=== PATIENT | female | born 1960 | race Caucasian/White ===

== ENCOUNTER → 2018-06-08 13:24 | Outpatient (CLI) | payer OTHER, SELFPAY ==
--- NOTE | 2018-06-08 | DI.MRI.S_ITS ---
PROCEDURE: MR KNEE LT WO CON INDICATIONS: INTERNAL DERANGEMENT OF LEFT KNEE TECHNIQUE: Noncontrast sagittal PD fast spin echo and T2 fast spin echo with fat saturation, sagittal 3-D FLASH with fat saturation; coronal T1 spin echo and PD fast spin echo with fat saturation, and axial PD fast spin echo with fat saturation through the knee. COMPARISON: None. FINDINGS: Image quality: Excellent. Menisci: The medial and lateral menisci demonstrate normal morphology and internal signal. The meniscal root ligaments appear intact. Cruciate ligaments: The anterior and posterior cruciate ligaments appear intact. Medial structures: The medial collateral ligament appears thickened with intrasubstance signal change. There is adjacent soft tissue edema. No complete rupture is identified. The posterior oblique ligament, semimembranosus tendon insertions, oblique popliteal ligament, and meniscocapsular junction appear intact. Visualized portions of the pes anserinus tendons appear normal. No abnormal bursal fluid. Lateral structures: The lateral collateral ligament, long and short heads of the biceps femoris tendon appear intact. The popliteus tendon appears normal; the popliteofibular ligament appears intact. The posterosuperior and anteroinferior popliteomeniscal fascicles appear intact. The arcuate and fabellofibular ligaments appear intact, on either side of the lateral inferior geniculate artery. Iliotibial band appears normal. Anterior structures: The quadriceps and patellar tendons appear intact. Patellar alignment is normal. No femoral trochlear dysplasia or ventral trochlear prominence. No edema in the infrapatellar fat pad. Bones and cartilage: Marrow contusion involving the posterolateral tibial plateau. No discrete fracture line is identified. Within the medial and lateral compartments articular cartilage appears grossly preserved. There is mild diffuse surface fraying of the patellar articular cartilage. Joint space: There is physiologic knee joint fluid. No Zamarripa's cyst. IMPRESSION: Acute or subacute marrow contusion involving the posterolateral tibial plateau. Low-grade sprain of the medial collateral ligament. Mild patellofemoral chondromalacia. Dictated by: Tray Schwartz M.D. on 06/08/2018 at 14:17 Approved by: Tray Schwartz M.D. on 06/08/2018 at 14:54
== END ==
PROVIDERS: PCP Nurse Practitioner Primary Care; Visit Provider Nurse Practitioner Primary Care
DX: S83.412A Sprain of medial collateral ligament of left knee, initial encounter (principal); S80.02XA Contusion of left knee, initial encounter; M22.42 Chondromalacia patellae, left knee
CPT/HCPCS: 73721

== ENCOUNTER 2025-07-04 10:32 | Emergency (ER) | payer MEDICARE, OTHER, SELFPAY ==
[2025-07-04] VITALS (16 sets, daily range): BP systolic 148–222; BP diastolic 66–100; PULSE 63–89; RESP 18; TEMP 36.2; O2SAT 91–98; BMI 30.7
--- NOTE | 2025-07-04 11:50 | ED.URI ---
HPI - URI/Sore Throat <Ghada Amaya PA-C - Last Filed: 07/04/25 17:52> General Chief Complaint: Upper Respiratory Symptoms Stated Complaint: Bleeding when coughing, Time Seen by Provider: 07/04/25 11:50 Source: patient Mode of arrival: Ambulatory History of Present Illness HPI Narrative: Ms. 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 Patient reports last Monday she started having a sore throat, she then developed a cough and started having blood-tinged sputum from her tracheostomy. She went to [facility] ER on Monday and had a chest x-ray revealing viral reactive airway disease, she was treated with a breathing treatment, doxycycline and Tylenol with codeine and was discharged. She saw her ENT Dr. Santa in [place] 2 days ago who performed and upper airway scope revealing no issues with the trach but did see inflammation in the lungs. Patient has stopped using the codeine as she did not want to mask her cough and she also wanted to be able to drive. She is here today for persistent cough and persistent blood-tinged sputum from her trach. She is experiencing dyspnea on exertion and she has pain in the throat chest and back with coughing, no pain at rest. She is still able to speak swallow and tolerate p.o. without difficulty. Her symptoms are not any worse however they have not improved at all with the doxycycline. She denies fevers, chills, abdominal pain, nausea, vomiting, diarrhea. Reports that her blood pressure has been elevated but she does not take blood pressure medication. She quit smoking 4 years ago. Related Data Previous Rx's ?Medication ?Instructions ?Recorded amoxicillin 875 mg-potassium 1 tab PO Q12H 5 days #10 tabs 07/04/25 clavulanate 125 mg tablet prednisone 20 mg tablet 40 mg (2 x 20 mg) PO DAILY 4 days 07/04/25 #8 tabs Allergies Allergy/AdvReac Type Severity Reaction Status Date / Time From OXYCODONE HCL Allergy Unknown Uncoded 07/04/25 10:38 Review of Systems <Ghada Amaya PA-C - Last Filed: 07/04/25 17:52> Review of Systems ROS Unobtainable: All systems reviewed & are unremarkable except as noted in HPI and below Patient History <Ghada Amaya PA-C - Last Filed: 07/04/25 17:52> Social History Smoking Status: Unknown if ever smoked Smoking Status: Unknown if ever smoked Exam <Ghada Amaya PA-C - Last Filed: 07/04/25 17:52> Narrative Exam Narrative: GENERAL: 65 year old patient appears stated age. Well-developed patient, in no acute distress. HEAD: Atraumatic. Normocephalic. EYES: PERRL. Extraocular motions intact. No scleral icterus. No injection or drainage. ENT: Nose without bleeding, purulent drainage. Posterior oropharynx is patent, uvula is midline. NECK: Trachea midline. Tracheostomy in place. No erythema or irritation around tracheostomy site. CARDIOVASCULAR: Regular rate and rhythm. RESPIRATORY: Nonlabored respirations. Speaking in clear, full sentences when tracheostomy is covered. She has no inspiratory abnormal breath sounds but she does have expiratory rhonchi throughout the lung zapien. GASTROINTESTINAL: Abdomen soft, non-tender, nondistended. EXTREMITIES: No LE edema. NEURO: AOx3. Clear speech. Moves all 4 extremities appropriately. SKIN: No rash or erythema of visible areas Initial Vital Signs Initial Vital Signs: Vital Signs Temperature 97.2 F L 07/04/25 10:39 Pulse Rate 72 07/04/25 10:39 Respiratory Rate 18 07/04/25 10:39 Blood Pressure 222/100 H 07/04/25 10:39 Pulse Oximetry 98 07/04/25 10:39 Oxygen Delivery Method Room Air 07/04/25 10:39 <Nathalia Chang MD - Last Filed: 07/05/25 07:11> Initial Vital Signs Initial Vital Signs: Vital Signs Temperature 97.2 F L 07/04/25 10:39 Pulse Rate 72 07/04/25 10:39 Respiratory Rate 18 07/04/25 10:39 Blood Pressure 222/100 H 07/04/25 10:39 Pulse Oximetry 98 07/04/25 10:39 Oxygen Delivery Method Room Air 07/04/25 10:39 Course <Ghada Amaya PA-C - Last Filed: 07/04/25 17:52> Orders Ordered: Discontinued Medications Albuterol/Ipratropium (Albuterol/Ipratropium 3 Ml Ampul) 3 ml INH NOW ONE Stop: 07/04/25 12:09 Last Admin: 07/04/25 12:41 Dose: 3 ml Documented By: JOSH Methylprednisolone (Methylprednisolone Succ 125 Mg/2 Ml Vial) 125 mg IV NOW ONE Stop: 07/04/25 12:09 Last Admin: 07/04/25 12:37 Dose: 125 mg Documented By: NAILA Vital Signs Vital signs: Vital Signs - 8 hr 07/04/25 10:39 07/04/25 10:46 07/04/25 10:47 Temperature 97.2 F L Pulse Rate 72 Respiratory Rate 18 Blood Pressure 222/100 H 210/91 H Pulse Oximetry 98 91 Oxygen Delivery Method Room Air 07/04/25 10:47 07/04/25 11:00 07/04/25 11:01 Temperature Pulse Rate 83 89 80 Respiratory Rate Blood Pressure Pulse Oximetry 95 98 97 Oxygen Delivery Method 07/04/25 11:01 07/04/25 11:30 07/04/25 11:31 Temperature Pulse Rate 70 Respiratory Rate Blood Pressure 198/79 H 179/76 H Pulse Oximetry 93 Oxygen Delivery Method 07/04/25 11:31 07/04/25 12:00 07/04/25 12:01 Temperature Pulse Rate 63 68 Respiratory Rate Blood Pressure 209/84 H Pulse Oximetry 94 96 Oxygen Delivery Method 07/04/25 12:01 07/04/25 12:20 07/04/25 12:20 Temperature Pulse Rate 68 84 Respiratory Rate Blood Pressure 207/82 H Pulse Oximetry 96 95 Oxygen Delivery Method 07/04/25 12:30 07/04/25 12:30 07/04/25 12:43 Temperature Pulse Rate 63 73 Respiratory Rate 18 Blood Pressure 211/84 H Pulse Oximetry 93 96 Oxygen Delivery Method Room Air 07/04/25 13:00 07/04/25 13:01 07/04/25 13:01 Temperature Pulse Rate 74 68 Respiratory Rate Blood Pressure 206/83 H Pulse Oximetry 93 94 Oxygen Delivery Method 07/04/25 13:07 07/04/25 13:07 07/04/25 13:30 Temperature Pulse Rate 71 Respiratory Rate Blood Pressure 178/72 H 148/66 H Pulse Oximetry 97 Oxygen Delivery Method 07/04/25 13:30 Temperature Pulse Rate 64 Respiratory Rate Blood Pressure Pulse Oximetry 93 Oxygen Delivery Method <Nathalia Chang MD - Last Filed: 07/05/25 07:11> Orders Ordered: Discontinued Medications Albuterol/Ipratropium (Albuterol/Ipratropium 3 Ml Ampul) 3 ml INH NOW ONE Stop: 07/04/25 12:09 Last Admin: 07/04/25 12:41 Dose: 3 ml Documented By: JOSH Methylprednisolone (Methylprednisolone Succ 125 Mg/2 Ml Vial) 125 mg IV NOW ONE Stop: 07/04/25 12:09 Last Admin: 07/04/25 12:37 Dose: 125 mg Documented By: NAILA Vital Signs Vital signs: Vital Signs - 8 hr 07/04/25 10:39 07/04/25 10:46 07/04/25 10:47 Temperature 97.2 F L Pulse Rate 72 Respiratory Rate 18 Blood Pressure 222/100 H 210/91 H Pulse Oximetry 98 91 Oxygen Delivery Method Room Air 07/04/25 10:47 07/04/25 11:00 07/04/25 11:01 Temperature Pulse Rate 83 89 80 Respiratory Rate Blood Pressure Pulse Oximetry 95 98 97 Oxygen Delivery Method 07/04/25 11:01 07/04/25 11:30 07/04/25 11:31 Temperature Pulse Rate 70 Respiratory Rate Blood Pressure 198/79 H 179/76 H Pulse Oximetry 93 Oxygen Delivery Method 07/04/25 11:31 07/04/25 12:00 07/04/25 12:01 Temperature Pulse Rate 63 68 Respiratory Rate Blood Pressure 209/84 H Pulse Oximetry 94 96 Oxygen Delivery Method 07/04/25 12:01 07/04/25 12:20 07/04/25 12:20 Temperature Pulse Rate 68 84 Respiratory Rate Blood Pressure 207/82 H Pulse Oximetry 96 95 Oxygen Delivery Method 07/04/25 12:30 07/04/25 12:30 07/04/25 12:43 Temperature Pulse Rate 63 73 Respiratory Rate 18 Blood Pressure 211/84 H Pulse Oximetry 93 96 Oxygen Delivery Method Room Air 07/04/25 13:00 07/04/25 13:01 07/04/25 13:01 Temperature Pulse Rate 74 68 Respiratory Rate Blood Pressure 206/83 H Pulse Oximetry 93 94 Oxygen Delivery Method 07/04/25 13:07 07/04/25 13:07 07/04/25 13:30 Temperature Pulse Rate 71 Respiratory Rate Blood Pressure 178/72 H 148/66 H Pulse Oximetry 97 Oxygen Delivery Method 07/04/25 13:30 Temperature Pulse Rate 64 Respiratory Rate Blood Pressure Pulse Oximetry 93 Oxygen Delivery Method MDM - URI/Sore Throat <Ghada Amaya PA-C - Last Filed: 07/04/25 17:52> Medical Records Attestation: I reviewed the patient's medical records. Medical records narrative: [facility] her [facility]. Lab Data 07/04/25 12:44 07/04/25 12:44 Labs: Lab Results 07/04/25 Range/Units 12:44 WBC 8.3 (4.5-11.0) X10^3/uL RBC 5.41 H (4.0-5.2) X10^6/uL Hgb 12.8 (12.0-16.0) g/dL Hct 39.6 (36-46) % MCV 73.2 L (80-100) fL MCH 23.7 L (26-34) PG MCHC 32.4 (30-36) % RDW 16.0 H (11.6-14.8) % Plt Count 321 (150-400) X10^3/uL Neut % (Auto) 58.5 (50-75) % Lymph % (Auto) 30.5 (25-40) % [place] % (Auto) 5.8 (3-14) % Eos % (Auto) 4.0 (2-4) % Baso % (Auto) 1.2 (0-2) % Neut # (Auto) 4900 (2918-0941) /uL Lymph # (Auto) 2500 (3468-7093) /uL [place] # (Auto) 500 (0-900) /uL Eos # (Auto) 300 (0-450) /uL Baso # (Auto) 100 (0-100) /uL PT 12.8 H (9.4-12.5) SECONDS INR 1.1 (0.9-1.3) APTT 31 (25.1-36.5) SECONDS Sodium 139 (137-145) mmol/L Potassium 4.0 (3.4-5.1) mmol/L Chloride 107 (98-107) mmol/L Carbon Dioxide 24 (22-32) mmol/L BUN 14 (7-17) mg/dL Creatinine 0.69 (0.52-1.04) mg/dL Estimated GFR > 60 (>60) mL/min BUN/Creatinine Ratio 20.3 (6-22) Glucose 109 H (70-99) mg/dL Calcium 9.0 (8.4-10.2) mg/dL Total Bilirubin 0.4 (0.2-1.3) mg/dL AST 35 (14-36) IU/L ALT 35 H (<35) IU/L Alkaline Phosphatase 145 H (38-126) U/L Total Protein 7.2 (6.3-8.2) g/dL Albumin 4.2 (3.5-5.0) g/dL Globulin 3.0 (1.7-4.1) g/dL Albumin/Globulin Ratio 1.4 (1.0-2.8) Imaging Data Chest x-ray: Radiologist's Impression: PROCEDURE: XR CHEST 2V INDICATIONS: blood tinged sputum from trach; cough TECHNIQUE: 2 views of the chest were acquired. COMPARISON: None. FINDINGS: Surgical changes and devices: Tracheostomy tube overlies the mid intrathoracic trachea. Surgical clips in the inferior neck. Lungs and pleura: Lungs are clear. No pleural effusions or pneumothorax. Mediastinum: Mediastinal contours are normal. Heart size is normal. Bones and chest wall: No suspicious bony abnormalities. Soft tissues appear unremarkable. IMPRESSION: Changes of tracheostomy. No acute pulmonary consolidation or pleural effusion. Dictated by: Juan Prado M.D. on 07/04/2025 at 12:23 Approved by: Juan Prado M.D. on 07/04/2025 at 12:24 [facility] Narrative Medical decision making narrative: 65 year old female With a past medical history of tracheostomy s/p vocal cord paralysis May 2024, COPD, anxiety who presents to the emergency department with persistent blood-tinged sputum from her trach, cough, sore throat x 9 days. Differential diagnosis includes but isn't limited to bronchitis, COPD exacerbation, pneumonia, pharyngitis, etc. On exam the patient is in no acute distress, nontoxic appearing, vital signs appropriate except for elevated blood pressure 198/79. Patient is not hypoxic or tachycardic. She is able to speak in clear full sentences when her tracheostomy is capped. She has no inspiratory wheezing but she does have expiratory rhonchi throughout her lung zapien. She has been on doxycycline without resolution of her symptoms, a chest x-ray on Monday revealed viral reactive airway disease, she had a bronchoscope 2 days ago which revealed inflammation of the lungs. patient reports having negative viral swab previously. Today we will treat with DuoNeb, Solu-Medrol, check CBC CMP coags and two-view chest x-ray. Chest x-ray reveals no acute pulmonary consolidation pleural effusion. Labs reveal normal WBC count 8.3, normal hemoglobin 12.8 hematocrit 39.6. Platelets 321. Normal sodium 139, potassium 4.0, BUN 14 creatinine 0.69. Slight elevation of ALT 35 alkaline phosphatase 145. Patient feels her symptoms are extremely improved after ED treatment of DuoNeb and Solu-Medrol. At this time I do suspect patient's symptoms are related to bronchitis, possible COPD exacerbation, we will add on Augmentin in addition to prednisone. Encourage patient to decrease carbohydrates, sugar in her diet and increase hydration while taking steroids. Discussed strict ED return precautions and prompt follow up with PCP. Patient verbalized understanding of all information and is happy with this plan. She is ambulatory and stable for discharge home. <Nathalia Chang MD - Last Filed: 07/05/25 07:11> Lab Data Labs: Lab Results 07/04/25 Range/Units 12:44 WBC 8.3 (4.5-11.0) X10^3/uL RBC 5.41 H (4.0-5.2) X10^6/uL Hgb 12.8 (12.0-16.0) g/dL Hct 39.6 (36-46) % MCV 73.2 L (80-100) fL MCH 23.7 L (26-34) PG MCHC 32.4 (30-36) % RDW 16.0 H (11.6-14.8) % Plt Count 321 (150-400) X10^3/uL Neut % (Auto) 58.5 (50-75) % Lymph % (Auto) 30.5 (25-40) % [place] % (Auto) 5.8 (3-14) % Eos % (Auto) 4.0 (2-4) % Baso % (Auto) 1.2 (0-2) % Neut # (Auto) 4900 (8301-3939) /uL Lymph # (Auto) 2500 (1919-5885) /uL [place] # (Auto) 500 (0-900) /uL Eos # (Auto) 300 (0-450) /uL Baso # (Auto) 100 (0-100) /uL PT 12.8 H (9.4-12.5) SECONDS INR 1.1 (0.9-1.3) APTT 31 (25.1-36.5) SECONDS Sodium 139 (137-145) mmol/L Potassium 4.0 (3.4-5.1) mmol/L Chloride 107 (98-107) mmol/L Carbon Dioxide 24 (22-32) mmol/L BUN 14 (7-17) mg/dL Creatinine 0.69 (0.52-1.04) mg/dL Estimated GFR > 60 (>60) mL/min BUN/Creatinine Ratio 20.3 (6-22) Glucose 109 H (70-99) mg/dL Calcium 9.0 (8.4-10.2) mg/dL Total Bilirubin 0.4 (0.2-1.3) mg/dL AST 35 (14-36) IU/L ALT 35 H (<35) IU/L Alkaline Phosphatase 145 H (38-126) U/L Total Protein 7.2 (6.3-8.2) g/dL Albumin 4.2 (3.5-5.0) g/dL Globulin 3.0 (1.7-4.1) g/dL Albumin/Globulin Ratio 1.4 (1.0-2.8) Discharge Plan Departure Patient Disposition: Home Clinical Impression: Bronchitis, Asthma exacerbation in COPD Instructions: DI for Acute Bronchitis Activity Restrictions/Additional Instructions: Dear Ms. Donaldson, Thank you for coming to the emergency department. Today you were evaluated for blood coming from your tracheostomy. Your workup today does not reveal pneumonia or any abnormalities with the lungs. I do suspect that you are dealing with bronchitis and possibly an exacerbation of your COPD. I would like you to complete the new course of antibiotics in addition to steroids. As we discussed, it is important to increase hydration and decrease carbohydrates in your diet while taking steroids. Please continue using your prescribed cough medicine and albuterol inhaler as needed. Please follow up with your primary care doctor. Please return to the emergency department if develop any new or worsening symptoms, chest pain, difficulty breathing, worsening bleeding or any other concerns. Please follow up with your primary care doctor within the next 2-3 days for ER follow-up. (If you do not have a PCP you can call [phone]. to schedule an appointment with an [facility] Primary Care Provider) IF YOU DEVELOP ANY NEW OR WORSENING SYMPTOMS, RETURN TO THE ER! Please read the attached instructions, they highlight more specific treatments and interventions for you at home. Thank you for letting me participate in your care, Ghada Amaya PA-C Prescriptions: New amoxicillin-pot clavulanate 875-125 mg tablet 1 tab PO Q12H 5 Days Qty: 10 0RF prednisone 20 mg tablet 40 mg PO DAILY 4 Days Qty: 8 0RF Rx Instructions: Take with breakfast. Referrals: Maxim Glass MD [Primary Care Provider, Family Practice] Stand Alone Forms: Patient Portal/API ED Sign-out <Nathalia Chang MD - Last Filed: 07/05/25 07:11> [facility] Attestation: I was available for consultation during this patient's emergency department visit. This chart is signed by myself for administrative purposes only. I did not have direct contact with this patient during this visit. They were seen independently by the APC.
--- NOTE | 2025-07-04 12:08 | DI.RAD.S_ITS ---
PROCEDURE: XR CHEST 2V INDICATIONS: blood tinged sputum from trach; cough TECHNIQUE: 2 views of the chest were acquired. COMPARISON: None. FINDINGS: Surgical changes and devices: Tracheostomy tube overlies the mid intrathoracic trachea. Surgical clips in the inferior neck. Lungs and pleura: Lungs are clear. No pleural effusions or pneumothorax. Mediastinum: Mediastinal contours are normal. Heart size is normal. Bones and chest wall: No suspicious bony abnormalities. Soft tissues appear unremarkable. IMPRESSION: Changes of tracheostomy. No acute pulmonary consolidation or pleural effusion. Dictated by: Juan Prado M.D. on 07/04/2025 at 12:23 Approved by: Juan Prado M.D. on 07/04/2025 at 12:24
[2025-07-04] MEDS: methylPREDNISolone succ 125 MG/2 ML VIAL IV (12:37)
[2025-07-04] MEDS: ALBUTEROL/IPRATROPIUM 3 ML AMPUL INH (12:41)
[2025-07-04 12:51] LABS: Add Manual Diff / Slide Review NO; Hematocrit 39.6 % (36-46); Hemoglobin 12.8 g/dL (12.0-16.0); Lymphocytes Absolute Auto 2500 /uL (1100-4500); Mean Corpuscular HGB Conc 32.4 % (30-36); Mean Corpuscular Hemoglobin 23.7 PG (26-34); Mean Corpuscular Volume 73.2 fL (80-100); Platelet Count 321 X10^3/uL (150-400)
[2025-07-04 13:01] LABS: INR 1.1 (0.9-1.3); Prothrombin Time 12.8 SECONDS (9.4-12.5)
[2025-07-04 13:03] LABS: PTT Partial Thromboplastin Tim 31 SECONDS (25.1-36.5)
[2025-07-04 13:07] LABS: Alanine Aminotransferase 35 IU/L (<35); Albumin 4.2 g/dL (3.5-5.0); Albumin Globulin Ratio 1.4 (1.0-2.8); Alkaline Phosphatase 145 U/L (38-126); Blood Urea Nitrogen 14 mg/dL (7-17); Calcium 9.0 mg/dL (8.4-10.2); Carbon Dioxide 24 mmol/L (22-32); Chloride 107 mmol/L (98-107); Estimated Glomerular Filt Rate > 60 mL/min (>60); Globulin 3.0 g/dL (1.7-4.1); Glucose 109 mg/dL (70-99); HEMOLYSIS < 15 (0-50); Potassium 4.0 mmol/L (3.4-5.1); Sodium 139 mmol/L (137-145); Total Protein 7.2 g/dL (6.3-8.2)
== END 2025-07-04 13:55 | disposition home or self-care (01) ==
PROVIDERS: Emergency Provider Physician Assistant; PCP Family Medicine
DX: J45.901 Unspecified asthma with (acute) exacerbation (principal); J44.89 Other specified chronic obstructive pulmonary disease; Z87.891 Personal history of nicotine dependence; Z93.0 Tracheostomy status
CPT/HCPCS: 36415; 71046; 80053; 85025; 85610; 85730; 94640; 96374; 99284; J2919

== ENCOUNTER 2025-07-30 12:52 | Emergency (ER) | payer MEDICARE, OTHER, SELFPAY ==
--- OUTSIDE RECORDS SUMMARY | 2025-07-22 16:03 | XMS_ITS | Continuity of Care Document ---
Author Organization [facility] [place] [address] Phone Care Team Providers Care Stave Inspector Name Role Phone Maxim Glass MD Primary Care Provider Serge Lemus MD Emergency Provider Maxim Glass MD Attending Provider Maxim Glass MD Referring Provider Care Teams Patient Care Team Team Status: Active Member Role/Relationship Status Dates Maxim Glass MD Primary Care Provider Active Visit Care Team Team Status: Inactive Member Role/Relationship Status Dates Maxim Glass MD Primary Care Provider Active Start: July 21, 2025 End: July 21, 2025 Serge Lemus MD Emergency Provider Active S tart: July 21, 2025 End: July 21, 2025 Visit Care Team Team Status: Inactive Member Role/Relationship Status Dates Maxim Glass MD Primary Care Provider Active Start: July 21, 2025 End: July 21, 2025 Maxim Glsas MD Attending Provider Active Start: July 21, 2025 End: July 21, 2025 Maxim Glass MD Referring Provider Active Start: July 21, 2025 End: July 21, 2025 Patient Care Team Team Status: Inactive Member Role/Relationship Status Dates Maxim Glass MD Primary Care Provider Active Start: July 22, 2025 End: July 22, 2025 Maxim Glass MD Attending Provider Active Start: July 22, 2025 End: July 22, 2025 Maxim Glass MD Referring Provider Active Start: July 22, 2025 End: July 22, 2025 Chief Complaint and Reason for Visit Chief Complaint Admit Date LT FINGER LAC July 21, 2025 9 :38am Trigger finger of right thumb Tracheosto my in plac July 21, 2025 11:17am 4mo. f/u w/fasting labs July 22 10:16am Allergies, Adverse Reactions, Alerts No known allergies Social History Smoking Status Status Start Date End Date Date of Observa tion Ex-smoker (finding) July 22, 2025 10:34am Observation Status Observation Response Date of Response Suicide Risk Category Screening complete Decembe r 2024 9:45am Living arrangement At home June 6:14pm Living Situation With spouse/s.o. June 28, 2025 6:14pm ETOH Use None June 28, 6:14pm Psychiatric None October 15, 2023 11:29am Legal Sex Female Sex Assigned At Female [id number] Family History Relationship Condition Age at Onset Recorded Date/T yaz father Pulmonary emphysema Unknown Problems Active Problems Problem Diagnosis/Recorded Date Onset Date Stat us Urinary tract infection February 12, 2025 10:09am Unknown Active Achilles tendinitis March 13, 2025 12:41pm Unknown Active Elevated blood pressure reading July 30, 2024 2:47pm Unknown Active Hand sprain June 22, 2025 5:10pm Unknown Ac tive Plantar fasciitis of right foot March 13, 2025 12:41pm Unknown Active Diabetes July 22, 2025 11:32am Unknown A ctive Mild carpal tunnel syndrome of right wrist June 23, 2024 6:17pm May 02, 2018 Active Pain in thumb joint with movement of right hand November 08, 2024 12:53pm Unknown Active Depression June 23, 2024 6:15pm January 01, 2019 Active Hypothyroidism June 23, 2024 6:15pm April 06, 2017 Active Finger laceration July 21, 2025 11:11am Unknown Active Stasis dermatitis of both legs March 25, 2025 3:58pm Unknown Active Sputum production October 31, 2024 5:31pm Unknown Active Trigger finger of right thumb December 26, 2024 8:50am Un known Active BMI 32.0-32.9,adult June 27, 2025 11:13am Unknow n Active Abnormal sputum amount November 22, 2024 8:38am Unknown Active Viral upper respiratory trac t infection November 14th, 2025 11:13am Unknown Active Tracheostomy infection July 30, 2024 3:32pm Unkn own Active Tracheostomy in place October 31, 2024 5:32pm Unknown Active Atelectasis of right lung November 22, 2024 8:38am Unkn own Active Bronchitis July 13, 2024 9:24am Unknown A ctive Bronchitis June 29, 2025 9:34am Unknown A ctive HTN (hypertension) July 12, 2024 12:11pm Unknown Active Right wrist sprain June 22, 2025 5:10pm Unknown Active Inactive/Resolved Problems Problem Diagnosis/Recorded Date Onset Date Stat us Lateral epicondylitis of right elbow July 29, 2015 2:57pm Unknown Resolved Knee effusion, left June 23, 2024 6:15pm May 24, 2018 Resolved Back pain, lumbosacral June 23, 2024 6:17pm Augu st 2016 Resolved Lumbar radiculopathy, acute September 29, 2014 12:14p m Unknown Resolved Preventative health care June 23, 2024 6:15pm Se ptember 2017 Resolved Right upper lobe pulmonary nodule June 23, 2024 6:17pm March 24, 2022 Resolved Nicotine dependence June 23, 2024 6:15pm Septemb er 2020 Resolved Obstructive sleep apnea June 23, 2024 6:15pm Nov ember 2021 Resolved Impingement syndrome of left shoulder June 23, 2024 6:15pm December 26, 2022 Resolved Internal derangement of left knee June 23, 2024 6:15pm May 24, 2018 Resolved Exertional dyspnea June 23, 2024 6:15pm June 15, 2022 Resolved Left medial knee pain May 19, 2018 5:05am Unknown Resolved Osteoarthritis of knees, bilateral June 23, 2024 6:17pm May 02, 2018 Resolved Candidal skin infection June 23, 2024 6:17pm Ambrocio uary 2017 Resolved Vocal cord nodule June 23, 2024 6:15pm February Resolved Acute tracheitis July 13, 2024 10:30am Unknown Resolved Shortness of breath June 23, 2024 6:15pm September 08, 2021 Resolved Sleep disturbance June 23, 2024 6:15pm June 15, 2022 Resolved Hoarseness June 23, 2024 6:15pm January 28 Resolved Osteoporosis June 23, 2024 6:15pm March 05 7 Resolved Degenerative joint disease (DJD) of lumbar spine June 23, 2024 6:17pm March 05, 2017 Resolved Tracheostomy care June 08, 2024 10:55am Unknown Resolved Cervical radiculopathy June 23, 2024 6:15pm Rex h 2023 Resolved History of nasal surgery June 08, 2024 8:56am Unk nown Resolved Contusion of rib on right side June 10, 2017 9:39pm Unknown Resolved Hyperlipidemia June 23, 2024 6:15pm March 05, 017 Resolved Radiculopathy of sacrococcygeal region June 23, 2024 6:17pm August 15, 2017 Resolved Impaired fasting glucose June 23, 2024 6:15pm Ju ly 2016 Resolved Panic disorder June 23, 2024 6:15pm March 02, 022 Resolved Lumbar back pain with radiculopathy affecting left lower extremity June 23, 2024 6:17pm March 01, 2017 Resolved Peter's thyroiditis June 23, 2024 6:15pm Grupo y 2016 Resolved Vocal cord dysfunction June 23, 2024 6:15pm Sept ember 2020 Resolved Vertigo June 23, 2024 6:15pm October 04, 2022 Resolved Tracheostomy complication June 08, 2024 8:56am Un known Resolved Closed fracture of right distal fibula June 07, 2017 1:09pm Unknown Resolved Constriction of airway June 23, 2024 6:17pm Tre fatmata 2021 Resolved Chest wall contusion September 03, 2016 2:50pm Unknown Resolved Prediabetes June 23, 2024 6:15pm March 02 Resolved Hx of cholecystectomy June 29, 2025 9:03am Unkno wn Resolved Hx of hysterectomy June 29, 2025 9:03am Unknown Resolved H/O thyroidectomy June 08, 2024 8:56am Unknown Resolved Shoulder pain, right December 24, 2018 11:39am Unknown Resolved Chronic rhinosinusitis June 23, 2024 6:17pm Augu st 2016 Resolved Chronic diarrhea June 23, 2024 6:17pm August d, 2017 Resolved 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, 2024 6: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 June 15, 2022 Resolved Hemorrhage from tracheostomy stoma July 13, 2024 10:30am Unknown Resolved Inspiratory stridor June 23, 2024 6:15pm September 08, 2021 Resolved Neuropathy, idiopathic June 23, 2024 6:15pm Rex ramsey 2023 Resolved GERD (gastroesophageal reflux disease) June 23, 2024 6:15pm December 26, 2022 Resolved Hx of tracheostomy June 29, 2025 9:03am Unknown Resolved Constipation June 23, 2024 6:15pm April 06, 017 Resolved Contusion of hand, left January 22, 2018 11:59am Unknow n Resolved Corneal abrasion, right November 04, 2018 12:54pm Unkno wn Resolved Wrist strain October 15, 2023 11:20am Unknown Reso lved Medications Medication Status Dose Units Route Directions Qty Days Refills S tart Date Stop Date End Date Reason(s) Instructions Adherence Levothyroxi ne 125 mcg tablet Discont inued 0 .ROUTE .COMPLEX 90 3 Decemb er 2023 4:45pm Decem hannah 2024 11:29 am TAKE ONE TABLET BY MOUTH ONE TIME DAILY Metformin (Glucophage Xr) 500 mg tablet extended release 24 hr Discont inued 500 MG PO TWICE A DAY 60 2 November 16, 2024 11:00p m Augus t 2024 7:33a m Lorazepam 0.5 mg tablet Active 0.5 MG PO FOUR TIMES DAILY as needed for anxiety 60 15 3 February 06, 2025 9:29am Complies with drug therapy Citalopram 10 mg tablet Active 0 .ROUTE .COMPLEX 30 6 April 08, 2025 7:32am TAKE ONE TABLET BY MOUTH ONE TIME DAILY Complies with drug therapy Metformin 500 mg tablet extended release 24 hr Active 0 .ROUTE .COMPLEX 60 6 April 08, 2025 7:32am TAKE ONE TABLET BY MOUTH TWICE DAILY Complies with drug therapy Meclizine 25 mg tablet Discont inued 25 MG PO TWICE A DAY as needed for dizziness 60 1 Octobe r 2024 11:00p m Decem hannah 2024 9:50a m Levothyroxi ne (Synthroid) 125 MCG tablet Discont inued 112 MCG PO DAILY March 31, 2013 11:00p m Novem hannah 2023 11:11 am Hydrocodone -Acetaminop hen 1 EACH tablet Discont inued 1 - 2 EACH PO Q6H as needed for Pain 15 0 March 31, 2013 11:00p m [facility] hannah 2012 7:33p m Levothyroxi ne (Synthroid) 125 mcg tablet Discont inued 125 MCG PO DAILY [facility] er 2023 11:09a m [facility] hannah 2023 4:46p m Hydrocodone -Acetaminop hen 1 EACH tablet Discont inued 1 - 2 EACH PO Q6H as needed for Pain 15 0 [facility] er 2012 12:00a m [facility] fatmata2014 11:10 am Prednisone 20 MG tablet Discont inued 40 MG PO DAILY 5 0 Dece er 2012 12:00a m [facility]2014 11:10 am 2X 20 MG TABS. QS Benzonatate 100 MG capsule Discont inued 100 MG PO THREE TIMES A DAY 15 0 Dece er 2012 12:00a m [facility] 2014 11:10 am Diazepam 5 MG tablet Discont inued 5 - 10 MG PO THREE TIMES A DAY as needed for Spasms 15 0 [facility] er 2012 12:00a m [facility] 2014 11:10 am 1-2 TABLETS Hydrocodone -Acetaminop hen 1 EACH tablet Discont inued 1 EACH PO Q4H as needed for Pain 20 0 Februa ry 2014 12:13p m [facility] hannah 2014 2:15p m Cyclobenzap rine 10 MG tablet Discont inued 10 MG PO THREE TIMES A DAY as needed for Spasms 20 0 Februa ry 2014 12:00a m [facility] h[place] 2014 2:15p m Ibuprofen 800 MG tablet Discont inued 800 MG PO Q8H as needed for PAIN &/OR FEVER 30 0 Februa ry 2014 12:00a m [facility] hannah 2014 2:15p m Prednisone 20 MG tablet Discont inued 60 MG PO DAILY 5 0 Februa ry 2014 12:00a m [facility] hannah 2014 2:15p m 3 X 20 MG TABS. QS Hydrocodone -Acetaminop hen 1 TAB tablet Discont inued 1 - 2 EACH PO Q6H as needed for Pain 15 0 Octobe r 2016 11:00p m January 22, 2018 11:12 am Knee Scooter Discont inued 1 UNIT .Route ONCE 1 Octobe r 2016 11:00p m January 22, 2018 11:12 am Knee scooter, #1, use as directed. . LOS 10 weeks. Diagnosis S82. 832A Erythromyci n 1 GM ointment Discont inued 1 APPFUL OP 5 TIMES DAILY 1 7 0 November 03, 2018 11:00p m October 15, 2023 10:10 am Meloxicam 7.5 MG tablet Discont inued 7.5 MG PO TWICE A DAY as needed for Pain 20 0 December 23, 2018 11:00p m February 17, 2023 11:46 am Doxycycline Hyclate 100 mg capsule Discont inued 100 MG PO TWICE A DAY 14 0 Novemb er 2023 12:00a m Novem hannah 2024 10:33 am Bronchitis Bronchitis , not specified as acute or chronic Hydrocodone -Acetaminop hen 5-325 mg tablet Discont inued 1 TAB PO THREE TIMES A DAY as needed for pain 14 0 Novemb er 2024 Novem hannah 2024 8:42a m Sprain of right wrist Unspecifie d sprain of right wrist, initial encounter Meloxicam 7.5 mg tablet Discont inued 7.5 MG PO TWICE A DAY 30 1 Novemb er 2024 12:00a m Novem hannah 2024 8:43a m Sprain of right wrist Unspecifie d sprain of right wrist, initial encounter Doxycycline Hyclate 100 mg capsule Discont inued 100 MG PO TWICE A DAY 14 0 Novemb er 2024 12:00a m Decem hannah 2024 9:48a m Bronchitis Bronchitis , not specified as acute or chronic Codeine-Gua ifenesin (Guaifenesi n Ac) 10-100 mg/5 mL liquid Discont inued 5 - 10 ML PO Q4H as needed for cough 120 0 Novemb er 2024 12:00a m Decem hannah 2024 10:04 am Bronchitis Bronchitis , not specified as acute or chronic Albuterol Sulfate (Ventolin Hfa) 90 mcg/actuati on HFA aerosol inhaler Active 1 PUFFS INH FOUR TIMES DAILY as needed for shortness of breath or wheezing 6.7 0 Novemb er 2024 12:00a m Bronchitis Bronchitis , not specified as acute or chronic Complies with drug therapy Inhalat. Spacing Dev,Sm. Mask (Space Chamber With Small Mask) spacer Active 0 .Route 1 0 Novemb er 2024 12:00a m Bronchitis Bronchitis , not specified as acute or chronic As directed Lorazepam 0.5 mg tablet Discont inued 0.5 MG PO FOUR TIMES DAILY as needed for anxiety 60 15 3 Novemb er 2023 12:00a m February 06, 2025 9:30a m Ketoconazol e 2 % cream Discont inued 1 APPLIC TOP every day 60 3 Novemb er 2023 12:22p m Decem hannah 2024 9:49a m Apply 1 a small amount to skin once a day Levothyroxi ne 112 mcg tablet Active 112 MCG PO every day 90 3 Dece er 2024 11:29a m Hypothyroi dism Hypothyroi dism, unspecifie d Complies with drug therapy Nitrofurant oin Monohyd/M-C ryst (Macrobid) 100 mg capsule Discont inued 100 MG PO Q12H 10 5 0 February 11, 2025 11:00p m February 15, 2025 11:00 pm February 16, 2025 11:00 pm Urinary tract infection Urinary tract infection, site not specified must administer with a meal/food Naproxen 500 mg tablet Discont inued 500 MG PO TWICE A DAY as needed for pain 60 2 March 12, 2025 11:00p m Dece hannah 2024 10:05 am On Hold: Per Patient Omeprazole 40 mg capsule,del ayed release(DR/ EC) Discont inued 40 MG PO every day as needed Novemb er 2023 12:00a m Novem hannah 2023 11:10 am Take 1 capsule by mouth once a day before breakfast Gabapentin 100 mg capsule Discont inued 100 MG PO FOUR TIMES DAILY Novemb er 2023 12:00a m Novem hannah 2023 11:10 am Take 1 capsule by mouth four times a day Temporary Disabled Placard misc Discont inued 0 .Route Novemb er 2023 12:00a m Dece hannah 2023 9:45a m As directed Ibuprofen (Motrin Ib) 200 mg tablet Active 400 MG PO Q8H as needed for fever or pain [facility] er 2023 12:00a m Take 2 tablet by mouth once a day Complies with drug therapy Acetaminoph en (Tylenol) 325 mg tablet Active 325 MG PO Q6H as needed for fever or pain [facility] er 2023 12:00a m Complies with drug therapy Ketoconazol e 2 % cream [facility]cont [facility] Novem hannah 2023 12:22 pm Apply 1 a small amount to skin once a day Citalopram 10 mg tablet Discont inued 10 MG PO every day 30 5 October 28, 2024 11:00p m Augus t 2024 7:33a m Temporary Disabled Placard misc Discont inued 0 .Route 1 0 [facility] 2023 12:00a m Dece hannah 2023 9:56a m As directed for twelve months. Temporary Disabled Placard misc Discont inued 0 .Route 1 0 [facility] 2023 9:56am Dece hannah 2023 9:44a m As directed for twelve months. Temporary Disabled Placard misc Discont inued 0 .Route 1 0 [facility] 2023 9:44am [facility] hannah 2023 9:45a m As directed for twelve months. Temporary Disabled Placard misc Discont inued 0 .Route 1 0 [facility] 2023 9:44am October 29, 2024 11:02 am As directed Temporary Disabled Placard misc Active 0 .Route 1 0 [facility] 2023 9:45am As directed for twelve months. Dextrometho ruddy-Gisellef enesin 60-1,200 mg tablet extended release 12 hr Discont inued 1 TAB PO Q12H 14 7 0 Novem er 2024 12:00a m Novem 2024 12:00 am Novem hannah 2024 12:01 am cough Immunizations Immunization Event Date Not Given Reason Dose Number [employer] Lot Number Reason(s) Given Vaccine Information Statement (VIS) Detail Administration Location Covid-19 Seasonal 12+ Octobe r 2023 [id number] October 23, 2020 [id number] [facility] 2020 Flu Vaccine [id number] Octobe r 2023 [id number] Influenza, Quadrivalent, Recombinant, PF Octobe r 2019 [id number] Relevant Diagnostic Tests and/or Laboratory Data Laboratory Results Test Collection Date/Time Result Date/Time Result Interpretation Reference Range Result Comment Performing Site White Blood Count July 21, 2025 11:24am July 21, 2025 11:29am 9.8 10*3/uL 4.8-10.8 [facility] [id number] [address] [facility] [address] Red Blood Count July 21, 2025 11:24am July 21, 2025 11:29am 5.71 10*6/uL above high threshold 4.20-5.40 [facility] [id number] [address] [facility] [address] Hemoglobi n July 21, 2025 11:24am July 21, 2025 11:29am 13.4 g/dL 12.0-16.0 [facility] [id number] [address] [facility] [address] Hematocri t July 21, 2025 11:24am July 21, 2025 11:29am 44.9 % 37.0-47.0 [facility] [id number] [address] [facility] [address] Mean Corpuscul ar Volume July 21, 2025 11:24am July 21, 2025 11:29am 78.6 fL below low threshold 81.0-99.0 [facility] [id number] [address] [facility] [address] Mean Corpuscul ar Hemoglobi n July 21, 2025 11:24am July 21, 2025 11:29am 23.5 pg below low threshold 27.0-31.0 [facility] [id number] [address] [facility] [address] Mean Corpuscul ar Hemoglobi n Concent July 21, 2025 11:24am July 21, 2025 11:29am 29.8 g/dL below low threshold 32.0-36.0 [facility] [id number] [address] [facility] [address] Red Cell Distribut ion Width July 21, 2025 11:24am July 21, 2025 11:29am 16.0 % above high threshold 12.0-15.0 [facility] [id number] [address] [facility] [address] Platelet Count July 21, 2025 11:24am July 21, 2025 11:29am 327 10*3/uL 130-450 [facility] [id number] [address] [facility] [address] Mean Platelet Volume July 21, 2025 11:24am July 21, 2025 11:29am 10.4 fL 7.9-10.8 [facility] [id number] [address] [facility] [address] Neutrophi ls # (Auto) July 21, 2025 11:24am July 21, 2025 11:29am 6.6 10*3/uL 1.5-6.6 [facility] [id number] [address] [facility] [address] Lymphocyt es # (Auto) July 21, 2025 11:24am July 21, 2025 11:29am 2.2 10*3/uL 1.5-3.5 [facility] [id number] [address] [facility] [address] Monocytes # (Auto) July 21, 2025 11:24am July 21, 2025 11:29am 0.6 10*3/uL 0.0-1.0 [facility] [id number] [address] [facility] [address] Eosinophi ls # (Auto) July 21, 2025 11:24am July 21, 2025 11:29am 0.4 10*3/uL 0.0-0.7 [facility] [id number] [address] [facility] [address] Basophils # (Auto) July 21, 2025 11:24am July 21, 2025 11:29am 0.1 10*3/uL 0.0-0.1 [facility] [id number] [address] [facility] [address] Nucleated Red Blood Cells % July 21, 2025 11:24am July 21, 2025 11:29am 0.0 /100{WB C} [facility] [id number] [address] [facility] [address] Nucleated RBC Absolute Count (auto) July 21, 2025 11:24am July 21, 2025 11:29am 0.00 10*3/uL [facility] [id number] [address] [facility] [address] Sodium Level July 21, 2025 11:24am July 21, 2025 11:45am 138 mmol/L 135-145 [facility] [id number] [address] [facility] [address] Potassium Level July 21, 2025 11:24am July 21, 2025 11:45am 4.3 mmol/L 3.5-4.5 As of February 2023 testing method has changed, this may include reference ranges. [facility] [id number] [address] [facility] [address] Chloride Level July 21, 2025 11:24am July 21, 2025 11:45am 104 mmol/L 101-111 As of February 2023 testing method has changed, this may include reference ranges. [facility] [id number] [address] [facility] [address] Carbon Dioxide Level July 21, 2025 11:24am July 21, 2025 11:45am 28 mmol/L 21-32 As of February 2023 testing method has changed, this may include reference ranges. [facility] [id number] [address] [facility] [address] Anion Gap July 21, 2025 11:24am July 21, 2025 11:45am 6.0 6-13 [facility] [id number] [address] [facility] [address] Blood Urea Nitrogen July 21, 2025 11:24am July 21, 2025 11:45am 12 mg/dL 6-20 As of February 2023 testing method has changed, this may include reference ranges. [facility] [id number] [address] [facility] [address] Creatinin e July 21, 2025 11:24am July 21, 2025 11:45am 0.6 mg/dL 0.6-1.3 As of February 2023 testing method has changed, this may include reference ranges. [facility] [id number] [address] [facility] [address] Estimated GFR (MDRD) July 21, 2025 11:24am July 21, 2025 11:45am 100 >89 The IDMS-traceab le MDRD Study Equation has been validated extensively in and populations between the ages of 18 and 70 with impaired kidney function (eGFR < 60 mL/min/1.73m 2) and has shown good performance for patients with all common causes of kidney disease. Although this equation has not been validated for patients older than 70, an MDRD-derived eGFR may still be a useful tool for providers caring for patients older than 70.Reference s: http://www.n kdep.nih.gov /lab-evaluat ion/gfr/crea tinine-stand ardization, last updated October 2011. [facility] [id number] [address] [facility] [address] Glucose Level July 21, 2025 11:24am July 21, 2025 11:45am 129 mg/dL above high threshold 74-104 As of February 2023 testing method has changed, this may include reference ranges. [facility] [id number] [address] [facility] [address] Uric Acid July 21, 2025 11:24am July 21, 2025 11:45am 5.2 mg/dL 2.3-6.6 As of February 2023 testing method has changed, this may include reference ranges. [facility] [id number] [address] [facility] [address] Calcium Level July 21, 2025 11:24am July 21, 2025 11:45am 9.3 mg/dL 8.5-10.3 As of February 2023 testing method has changed, this may include reference ranges. [facility] [id number] [address] [facility] [address] Magnesium Level July 21, 2025 11:24am July 21, 2025 11:45am 2.0 mg/dL 1.7-2.3 As of February 2023 testing method has changed, this may include reference ranges. [facility] [id number] [address] [facility] [address] Total Bilirubin July 21, 2025 11:24am July 21, 2025 11:45am 0.4 mg/dL 0.2-1.0 As of February 2023 testing method has changed, this may include reference ranges. [facility] [id number] [address] [facility] [address] Aspartate Amino Transf (AST/SGOT ) July 21, 2025 11:24am July 21, 2025 11:45am 19 [iU]/L 10-42 As of February 2023 testing method has changed, this may include reference ranges. [facility] [id number] [address] [facility] [address] Alanine Aminotran sferase (ALT/SGPT ) July 21, 2025 11:24am July 21, 2025 11:45am 24 [iU]/L 10-60 As of February 2023 testing method has changed, this may include reference ranges. MA[facility] [id number] [address] [facility] [address] Alkaline Phosphata se July 21, 2025 11:24am July 21, 2025 11:45am 146 [iU]/L above high threshold 42-121 As of February 2023 testing method has changed, this may include reference ranges. [facility] [id number] [address] [facility] [address] Total Protein July 21, 2025 11:24am July 21, 2025 11:45am 7.4 g/dL 6.4-8.9 As of February 2023 testing method has changed, this may include reference ranges. [facility] [id number] [address] [facility] [address] Albumin July 21, 2025 11:24am July 21, 2025 11:45am 4.4 g/dL 3.2-5.5 As of February 2023 testing method has changed, this may include reference ranges. [facility] [id number] [address] [facility] [address] Globulin July 21, 2025 11:24am July 21, 2025 11:45am 3.0 g/dL 2.1-4.2 [facility] [id number] [address] [facility] [address] Albumin/G lobulin Ratio July 21, 2025 11:24am July 21, 2025 11:45am 1.5 1.0-2.2 [facility] [id number] [address] [facility] [address] Triglycer ides Level July 21, 2025 11:24am July 21, 2025 11:45am 155 mg/dL As of February 2023 testing method has changed, this may include reference ranges.Trigl yceride Risk Classificati on<150 mg/dL [id number] 9 mg/dL Borderline [id number] mg/dL High>500 mg/dL Very High [facility] [id number] [address] [facility] [address] Cholester ol Level July 21, 2025 11:24am July 21, 2025 11:45am 216 mg/dL above high threshold <200 As of February 2023 testing method has changed, this may include reference ranges.Total Cholesterol Risk Classificati onCholestero l Level Risk Classificati on ======= ======= <200 mg/dL Desirable 200-239 mg/dL Borderline High >240 mg/dL High [facility] [id number] [address] [facility] [address] LDL Cholester ol, Calculate d July 21, 2025 11:24am July 21, 2025 11:45am 127 mg/dL <129 LDLD REFERENCE RANGE AND CARDIOVASCUL AR RISK:<130 mg/dL [id number] -159 mg/dL Borderline High Risk>160 mg/dL High Risk MAIN [facility] [id number] [address] [facility] [address] VLDL Cholester ol July 21, 2025 11:24am July 21, 2025 11:45am 31 mg/dL MAIN [facility] [id number] [address] [facility] [address] HDL Cholester ol July 21, 2025 11:24am July 21, 2025 11:45am 58 mg/dL below low threshold >60 As of February 2023 testing method has changed, this may include reference ranges.Coron fatmata Heart Disease Risk Classificati onHDL Level Risk factor====== ===== =< 40 mg/dL major risk > 60 mg/dL negative risk MAIN [facility] [id number] [address] [facility] [address] Cholester ol Ratio (LDL/HDL) July 21, 2025 11:24am July 21, 2025 11:45am 2.2 <4.4 MAIN [facility] [id number] [address] [facility] [address] Cholester ol/HDL Ratio July 21, 2025 11:24am July 21, 2025 11:45am 3.7 <4.4 NATIONAL CHOLESTEROL GUIDELINE [facility] ([facility]) guidelines for classificato n, testing and management of cholesterol levels in adults over 20 years of age. This new classificati on creates three categories of risk for coronary heart disease, regardless of age or sex, according to total amd LDL cholesterols levels: Based on total cholesterol levelDesirab le <200 mg/dlBorderl ine-high 200-239 mg/dlHigh >=240 mg/dl Based on cholesterol ratioCHD RISK CHOL/HDL RATIO------- ----- MALE FEMALE0.5 x Average 3.4 3.31.0 x Average 5.0 4.42.0 x Average 9.6 7.13.0 x Average 13.5 11.0 MAIN [facility] [id number] [address] [facility] [address] Thyroid Stimulati ng Hormone (TSH) July 21, 2025 11:24am July 21, 2025 11:57am 0.08 u[iU]/m L below low threshold 0.34-5.60 MAIN LAB [id number] [address] [facility] [address] Hemoglobi n A1c Percent July 21, 2025 11:24am July 21, 2025 12:44pm 6.4 % above high threshold 4.27-6.07 The [place] [employer] (ADA) has made the following recommendati ons:Monitori ng HbA1c in Diabetic Patients:A1c (NGSP%) Goal <8 Less Stringent Goal <7 General Goal <6.5 More Stringent GoalDiagnosi s of Diabetes:A1c (NGSP%) Goal >6.5 Diabetic 5.7-6.4 Pre-Diabetic <5.7 Non-Diabetic MAIN LAB [id number] [address] [facility] [address] Estimated Average Glucose July 21, 2025 11:24am July 21, 2025 12:44pm 137 mg/dL above high threshold 70-100 MAIN LAB [id number] [address] [facility] [address] Vital Signs Vital Reading Result Reference Range Collection Date/Time Height 65 [in_i] July 21 9:45am Weight 86.18 kg July 21 9:45am Body Temperature 36 Kimberly 36.5-37.9 July 9:45am Heart Rate 73 /min 60-100 July 21 9:45am Respiratory rate 16 /min 12-July 9:45am Oxygen saturation by Pulse oximetry 98 % 92-100 July 21, 2025 9 :45am BP Systolic 183 mm[Hg] 90-130 July 21, 2 025 9:45am BP Diastolic 77 mm[Hg] 60-90 July 21, 2 025 9:45am BMI (Body Mass Index) 31.6 kg/m2 [facility] er 2024 9:45am Height 65 [in_i] July 22, 2 025 10:25am Weight 87.65 kg July 22, 2 025 10:25am Body Temperature 36.5 Kimberly 36.5-37.9 July h2024 10:25am Heart Rate 68 /min 60-100 July 22, 025 10:25am Respiratory rate 12 /min 12-24 July 10:25am Oxygen saturation by Pulse oximetry 95 % 92-100 July 22, 2025 1 0:25am BP Systolic 181 mm[Hg] 90-130 July 22, 2 025 10:25am BP Diastolic 90 mm[Hg] 60-90 July 22, 2 025 10:25am BMI (Body Mass Index) 32.2 kg/m2 [facility] 2024 10:25am Advance Directives Advance Directive Response Recorded Date/ Time Advance Directives No June 8:30am Advance Directives Information Provided No June 27, 2022 8:30am Insurance Providers Guarantor MYRON QUEZADA Address [address] [facility] [address] [place] [phone] Contact Info. Home Phone: Coverage Status Update:2025 Payer Group Member ID Coverage Type Subscriber Relationship to Subscriber Effective Date Expiration Date Malia Prime [id number] mary alice QUEZADA Id: [id number] [employer] Id: [id number] null MYRON QUEZADA Id: [id number] [address] [facility] [address] [facility] [address] Home Phone: Email: [email or web address] Self Encounters Encounter Location(s) Arrival/Admit Date Discharge/Departure Date Discharge/Departure Disposition Provider(s) Departed Emergency -Emergency Department July 21, 2025 9:38am July 21, 2025 11:18am Discharged to home care or self care (routine discharge) Departed Clinical -Lab (Main) July 21, 2025 11:17am July 21, 2025 11:59pm Discharged to home care or self care (routine discharge) Maxim Glass MD Departed Physician/ Provider Office Visit -[facility] [place] July 22, 2025 10:16am July 22, 2025 11:59pm Discharged to home care or self care (routine discharge) Maxim Glass MD Plan of Treatment Future Tests Future scheduled test information is unavailable Pending Tests Test Name Ordered Date Scheduled Date CBC - COMP BLD CT W/AUTO DIFF July 22, 2025 11:29am COMPREHENSIVE METABOLIC PANEL July 22, 2025 11:29am THYROID STIMULATING HORMONE July 22, 2025 1 1:29am Future Visits Future appointment information is unavailable Future Procedures Procedure Name Ordered Date Scheduled Date HEMOGLOBIN A1c% July 22, 2025 11:30am Future Medications Future medication information is unavailable Patient Instructions Instruction Admit Date ED Laceration, All Closures ED Hand Laceration- All Closures July 21, 2025 9:38am
[2025-07-30 13:01] VITALS: BP 167/78; PULSE 66; RESP 18; TEMP 36.4; O2SAT 97; BMI 31.6
--- NOTE | 2025-07-30 13:06 | ED.RECABL ---
HPI - Recheck/Abnormal Lab/Rx <Ghada Amaya PA-C - Last Filed: 07/30/25 13:21> General Chief Complaint: Recheck/Abnormal Lab/Rx Stated Complaint: Remove stitches L hand, pointer finger Time Seen by Provider: 07/30/25 13:06 Source: patient Mode of arrival: Family Vehicle History of Present Illness HPI narrative: Ms. Donaldson is a very pleasant 65-year-old female who presents to the emergency department for suture removal of left index finger. She cut her left index finger with a knife 10 days ago and had 4 sutures placed at an outside ER. She was advised to have them removed now. She is not dealing with any redness, drainage, fevers or swelling. Finger has healed well. No other concerns. Related Data Allergies Allergy/AdvReac Type Severity Reaction Status Date / Time From OXYCODONE HCL Allergy Unknown Uncoded 07/30/25 13:00 Review of Systems <Ghada Amaya PA-C - Last Filed: 07/30/25 13:21> Review of Systems ROS Unobtainable: All systems reviewed & are unremarkable except as noted in HPI and below Patient History <Ghada Amaya PA-C - Last Filed: 07/30/25 13:21> Social History Smoking Status: Former smoker Smoking Status: Former smoker tobacco type: cigarettes Exam <Ghada Amaya PA-C - Last Filed: 07/30/25 13:21> Narrative Exam Narrative: GENERAL: 65 year old patient appears stated age. Well-developed patient, in no acute distress. HEAD: Atraumatic. Normocephalic. CARDIOVASCULAR: Regular rate RESPIRATORY: ?Nonlabored respirations. ?Speaking in clear, full sentences. Tracheostomy. NEURO: AOx3. ?Clear speech. ?Moves all 4 extremities appropriately. SKIN: Medial base left 2nd digit, there is a 2 cm linear laceration with [address] Well healed. No erythema, drainage or streaking. Initial Vital Signs Initial Vital Signs: Vital Signs Temperature 97.5 F L 07/30/25 13:01 Pulse Rate 66 07/30/25 13:01 Respiratory Rate 18 07/30/25 13:01 Blood Pressure 167/78 H 07/30/25 13:01 Pulse Oximetry 97 07/30/25 13:01 Oxygen Delivery Method Room Air 07/30/25 13:01 <DO Mauro Cazares Last Filed: 07/31/25 07:21> Initial Vital Signs Initial Vital Signs: Vital Signs Temperature 97.5 F L 07/30/25 13:01 Pulse Rate 66 07/30/25 13:01 Respiratory Rate 18 07/30/25 13:01 Blood Pressure 167/78 H 07/30/25 13:01 Pulse Oximetry 97 07/30/25 13:01 Oxygen Delivery Method Room Air 07/30/25 13:01 Course <Ghada Amaya PA-C - Last Filed: 07/30/25 13:21> Vital Signs Vital signs: Vital Signs - 8 hr 07/30/25 13:01 Temperature 97.5 F L Pulse Rate 66 Respiratory Rate 18 Blood Pressure 167/78 H Pulse Oximetry 97 Oxygen Delivery Method Room Air <Rachele iRtter DO - Last Filed: 07/31/25 07:21> Vital Signs Vital signs: Vital Signs - 8 hr 07/30/25 13:01 Temperature 97.5 F L Pulse Rate 66 Respiratory Rate 18 Blood Pressure 167/78 H Pulse Oximetry 97 Oxygen Delivery Method Room Air MDM - Recheck/Abnormal Lab/Rx <FRANCHESKA Alves Last Filed: 07/30/25 13:21> Medical Records Attestation: I reviewed the patient's medical records. [facility] Narrative Medical decision making narrative: 65-year-old female who presents to the emergency department for suture removal of left index finger. Differential diagnosis includes but is not limited to suture removal, wound infection, etc. On exam patient is in no acute distress, nontoxic appearing, vital signs appropriate except for mildly elevated blood pressure. She had 4 sutures placed into the base of her left index finger 10 days ago. The wound has healed well, there is no signs of infection and no dehiscence. 4 simple interrupted sutures were removed easily, no dehiscence bleeding or complications. A bandage and Coban were applied. Discussed proper wound care and ER return precautions. Patient verbalized understanding of all information agreeable with the plan. She is stable for discharge home Discharge Plan Departure Patient Disposition: Home Clinical Impression: Encounter for removal of sutures Instructions: DI for Suture Removal Activity Restrictions/Additional Instructions: Dear Ms. Donaldson, Thank you for coming to the emergency department. Today 4 sutures were removed from your finger. Please keep this area clean and covered. Avoid soaking the wound in dirty water for at least the next week. Please return to the ER if you develop fevers, redness, drainage from the wound or any other concerns. Please follow up with your primary care doctor within the next 2-3 days for ER follow-up. (If you do not have a PCP you can call [phone]. ?to schedule an appointment with an [facility] Primary Care Provider) IF YOU DEVELOP ANY NEW OR WORSENING SYMPTOMS, RETURN TO THE ER! Please read the attached instructions, they highlight more specific treatments and interventions for you at home. Thank you for letting me participate in your care, Ghada Amaya PA-C Referrals: Maxim Glass MD [Primary Care Provider, Family Practice] Stand Alone Forms: Patient Portal/API ED Sign-out <Rachele Ritter, DO - Last Filed: 07/31/25 07:21> Cosign ED Attending Brian Attestation: I was available for consultation.
== END 2025-07-30 13:29 | disposition home or self-care (01) ==
PROVIDERS: Emergency Provider Physician Assistant; PCP Family Medicine
DX: Z48.02 Encounter for removal of sutures (principal); S61.211D Laceration without foreign body of left index finger without damage to nail, subsequent encounter; W26.0XXD Contact with knife, subsequent encounter
CPT/HCPCS: 99281